=== PATIENT | male | born 1940 | race African-American/Black ===

== ENCOUNTER 2017-01-26 07:48 | Day surgery (SDC) | payer MEDICARE, BC ==
[~2017-01-26] VITALS: Ht 162.6 cm; Wt 66.0 kg
[2017-01-26] VITALS (16 sets, daily range): BP systolic 77–108; BP diastolic 35–62; PULSE 64–76; RESP 10–23; Ht 162.6 cm; Wt 66.0 kg
[~2017-01-26 07:48] MED LIST: ACET325T45 PO; ALLO100T PO; ASPI81TA3 PO; ATOR20TA38 PO; CITRACAL PO; CLOP75TA27 PO; DONE5TAB PO; FERR-55 PO; GUAI-637 PO; INSU100V23 SC; LEVO250T35 PO; LISI10TA2 PO; MULT-860 PO; MULT1TAB6 PO; OMEG100011 PO; PANT40TA4 PO; VITA100T7 PO; ZOLP5TAB7 PO
[2017-01-26] MEDS ORDERED: LIDOCAINE 1% (MPF) 30 ML INJ ONE (08:34)
[2017-01-26] MEDS ORDERED: GELATIN SIZE 100 SPONGE ONE ×2 (08:34→14:37)
[2017-01-26] MEDS ORDERED: HEPARIN 1000 UNITS/ML 10 ML INJ ONE (08:35)
[2017-01-26] MEDS ORDERED: THROMBIN 5000 UNIT VIAL ONE ×2 (08:35→14:37)
--- NOTE | 2017-01-26 08:37 | HPN ---
Date/Time of Note Date/Time of Note DATE: 01/26/17 TIME: 08:37 Interval H&P Admission Note Pt. seen H&P reviewed: No system changes ILA CHERRY MD Jan 26, 2017 08:37
[2017-01-26] MEDS ORDERED: AMIO200T2 PO (09:14)
[2017-01-26] MEDS ORDERED: DONE5TAB46 PO ×2 (09:15→09:16)
[2017-01-26] MEDS ORDERED: CARV12.579 PO (09:18)
[2017-01-26] MEDS ORDERED: DOCU-144 PO (09:19)
[2017-01-26] MEDS ORDERED: FISH1CAP PO (09:22)
[2017-01-26] MEDS ORDERED: DEXL60CA2 PO (09:22)
[2017-01-26] MEDS ORDERED: GLYC488L PO (09:23)
[2017-01-26] MEDS ORDERED: VIT1TAB.6 PO (09:24)
--- NOTE | 2017-01-26 09:24 | RADRPT ---
PROCEDURE: Chest radiograph. CLINICAL INDICATION: Preoperative evaluation prior to AV graft creation. TECHNIQUE: Single portable frontal view. COMPARISON: Radiograph from 07/12/2014 and 07/10/2014. FINDINGS: Double-lumen right internal jugular central venous catheter terminates in the proximal superior vena cava. Mild pulmonary vascular congestion, right more than left. Small right pleural effusion. Cardiomegaly. No suspicious bone lesion. IMPRESSION: Cardiomegaly with small right pleural effusion and mild vascular congestion. RPTAT: PP Rogers Reyes Physician Date Time Electronically viewed and signed by Rogers Reyes Physician on 01/26/2017 09:24 LG/
[2017-01-26] MEDS ORDERED: ONDA4TAB95 PO (09:25)
[2017-01-26] MEDS ORDERED: CLOP75TA27 PO (09:25)
[2017-01-26] MEDS ORDERED: RYE1TABL PO (09:27)
[2017-01-26] MEDS ORDERED: SEVE800T7 PO (09:27)
[2017-01-26] MEDS ORDERED: LINA5TAB PO (09:29)
[2017-01-26] MEDS ORDERED: LIDOCAINE 2% (SDV) 5 ML INJ ONE (10:06)
[2017-01-26] MEDS ORDERED: PROPOFOL 100 ML ONE (10:06)
[2017-01-26] MEDS ORDERED: MIDAZOLAM 1 MG/ML 2 ML INJ ONE (10:07)
[2017-01-26] MEDS ORDERED: CEFAZOLIN 1 GM INJ ONE (10:30)
[2017-01-26] MEDS ORDERED: FENTAnyl 50 MCG/ML VIAL ONE (10:37)
[2017-01-26] MEDS ORDERED: GELATIN SIZE 100 SPONGE TOP ONE (10:50)
[2017-01-26] MEDS ORDERED: THROMBIN 5000 UNIT VIAL TOP ONE (10:50)
[2017-01-26] MEDS ORDERED: ONDANSETRON 4 MG INJ IV PRN (11:30)
[2017-01-26] MEDS ORDERED: OXYCODONE/ACETAMINOPHEN (5/325) TAB PO PRN (11:30)
[2017-01-26] MEDS ORDERED: HYDROmorphONE (0.2 MG/ML) 10ML SYG IV PRN (11:30)
[2017-01-26] MEDS ORDERED: FENTAnyl 50 MCG/ML VIAL IV PRN (11:30)
[2017-01-26] MEDS ORDERED: PHENYLephrine (100 MCG/ML) 5ML SYG ONE (11:35)
--- NOTE | 2017-01-26 11:47 | OPR ---
Date/Time of Note Date/Time of Note DATE: 01/26/17 TIME: 11:46 Operative Report Preoperative Diagnosis ESRD Postoperative Diagnosis same Operation/Procedure Performed Right arm AV graft Surgeon: ILA CHERRY MD Anesthesia: MAC Estimated Blood Loss: none Grafts/Implants 6mm artegraft Complications: None ILA CHERRY MD Jan 26, 2017 11:47
[2017-01-26] MEDS ORDERED: HEPARIN 1000 UNITS/ML 10 ML INJ CATHETER SCH (12:00)
--- NOTE | 2017-01-26 14:47 | OPR ---
DATE OF OPERATION: 01/26/2017 DIAGNOSIS: End-stage renal disease. POSTOPERATIVE DIAGNOSIS: End-stage renal disease. OPERATION PERFORMED: Right upper arm AV graft creation. SURGEON: Dr. Lakhwinder Albrecht. ANESTHESIA: MAC anesthesia. ESTIMATED BLOOD LOSS: Minimal. COMPLICATIONS: There were no intra-procedural complications. INDICATIONS,: A 76-year-old gentleman with multiple medical problems and he has been on dialysis for several years. He has a failed left upper arm access. He had a right subclavian AICD that was removed over the past 6 months because of infection. He has a Life Vest. He now has a PermCath in the right internal jugular vein. He needs an arm access before his AICD can be replaced. He does have some stenosis in the right subclavian vein at the site of the PermCath so I told him that I was going to place a right upper arm AV graft. Once it is functional we will then remove the PermCath over a wire and then I will angioplasty the stenosis in the subclavian through that same access. I also told him that he may get swollen. He may get arm swelling before we treat. He understands. OPERATIVE PROCEDURE: Patient was brought to the operating room, placed on table in supine position. Right arm was prepped and draped in the usual sterile fashion. I made 2 incisions in the right medial arm, 1 just above the other one in the upper arm over the brachial artery and axillary artery pulses. I divided the subcutaneous tissue using electrocautery. I had given 10 cc of xylocaine over these areas of incision to anesthetize the area. Once I divided the subcutaneous tissues I dissected out the brachial artery at the elbow. I soft palpate the artery, it is a little bit small but it had no disease. The axillary vein in the upper arm was a good caliber vein, it was patent. I looped it proximally and distally. I then tunneled a 6 mm collagen Artegraft between the 2 incisions in a curvilinear fashion out over the biceps using a Yazmin tunneler. I then clamped the axillary vein proximally and distally, made a 1.5 cm venotomy and then I spatulated the end of the graft to fit the venotomy to side vein using 6-0 Prolene suture in a running standard vascular surgical fashion. I removed the clamps, there was good back flow and flushed easily. I reclamped the graft and then clamped the brachial artery proximally and distally, made an 8 mm long anterior arteriotomy. I then anastomosed the proximal end of graft to the side of brachial artery using 6-0 Prolene suture in a running standard vascular surgical fashion. I removed the clamps, there was soft thrill. There was good hemostasis. We closed the incisions in 2 layers using an inner layer of 3-0 Vicryl and an outer layer 4-0 Monocryl suture. Sterile dressings were applied. The patient was transferred to recovery in stable condition. He tolerated the procedure well without complications. Dictated By: Lakhwinder Albrecht MD /claudine/tray /Document#: [id number] CC: Apple Russo MD; Aníbal Osborne MD; Dr. Robert Bernstein;*EndCC*
--- NOTE | 2017-01-26 15:05 | RADRPT ---
Vent Rate: 78 bpm RR Interval: 0 msec [place] Interval: 180 msec QRS Duration: 114 msec QT Interval: 424 msec QTC Interval: 483 msec P-R-T [place]: 60 - 7 - 152 degrees Normal sinus rhythm ST amp; T wave abnormality, consider lateral ischemia Prolonged QT Abnormal ECG Electronically Signed By: Lakhwinder Medeiros [id number]
[2017-01-26] MEDS ORDERED: CARV3.1260 PO (20:45)
[2017-01-26] MEDS ORDERED: DONE10TA7 PO (20:48)
[2017-01-26] MEDS ORDERED: ATOR40TA68 PO (20:48)
[2017-01-26] MEDS ORDERED: MEMA10TA16 PO (20:49)
[2017-01-26] MEDS ORDERED: NATE60TA PO (20:50)
== END 2017-01-26 13:45 | disposition home or self-care (01) ==
LOC: SDS 07:48
PROVIDERS: ATTEND Surgery Vascular Surgery
DX: I12.0 Hypertensive chronic kidney disease with stage 5 chronic kidney disease or end stage renal disease (principal); N18.6 End stage renal disease; I25.10 Atherosclerotic heart disease of native coronary artery without angina pectoris; I50.9 Heart failure, unspecified; I25.2 Old myocardial infarction; Z95.810 Presence of automatic (implantable) cardiac defibrillator
CPT/HCPCS: 36821; 71010; 82962; 84132; 93005; C1725; C1768; J0690; J1644; J2250; J2370; J3010

== ENCOUNTER 2017-01-26 19:20 | Emergency (ER) | payer MEDICARE, BC ==
[~2017-01-26] VITALS: Ht 162.6 cm; Wt 67.0 kg
[~2017-01-26 19:20] MED LIST changes: +AMIO200T2 PO; +CARV12.579 PO; +DEXL60CA2 PO; +DOCU-144 PO; +DONE5TAB46 PO; +FISH1CAP PO; +GLYC488L PO; +LINA5TAB PO; +ONDA4TAB95 PO; +RYE1TABL PO; +SEVE800T7 PO; +VIT1TAB.6 PO
[2017-01-26 19:32] VITALS: Ht 162.6 cm; Wt 67.0 kg
[2017-01-26 19:40] VITALS: TEMP 97.8
[2017-01-26] MEDS ORDERED: SOD CHLORIDE 0.9% 500 ML IV STA (19:46)
[2017-01-26 20:17] LABS: BASOPHILS % 0.3 % (0.0-2.0); EOSINOPHILS # 0.4 10^3/ul (0.0-0.5); EOSINOPHILS % 5.1 % (0.0-7.0); HEMATOCRIT 34.4 % (42.0-52.0); HEMOGLOBIN 10.8 g/dl (14.0-18.0); LYMPHOCYTES # 2.2 10^3/ul (0.8-2.9); LYMPHOCYTES % 30.7 % (15.0-51.0); MEAN CORPUSCULAR HEMOGLOBIN 28.4 pg (29.0-33.0); MEAN CORPUSCULAR HGB CONC 31.4 g/dl (32.0-37.0); MEAN CORPUSCULAR VOLUME 90.5 fl (82.0-101.0); MEAN PLATELET VOLUME 12.6 fl (7.4-10.4); MONOCYTE # 0.8 10^3/ul (0.3-0.9); MONOCYTES % 10.5 % (0.0-11.0); NEUTROPHIL # 3.8 10^3/ul (1.6-7.5); NEUTROPHILS % 53.1 % (39.0-77.0); PLATELET COUNT 107 10^3/UL (140-415); RED CELL DISTRIBUTION WIDTH 15.6 % (11.5-14.5); WHITE BLOOD COUNT 7.2 10^3/ul (4.8-10.8)
[2017-01-26] MEDS ORDERED: CARV3.1260 PO (20:45)
[2017-01-26] MEDS ORDERED: DONE10TA7 PO (20:48)
[2017-01-26] MEDS ORDERED: ATOR40TA68 PO (20:48)
--- NOTE | 2017-01-26 20:48 | RADRPT ---
PROCEDURE: XR Chest. CLINICAL INDICATION: Chest pain. TECHNIQUE: PA and Lateral views of the chest were obtained. COMPARISON: None. FINDINGS: New right central venous double-lumen dialysis catheter with tip in the superior vena cava. Cardiomegaly. Small right pleural effusion is decreased over the interval. Mild atelectasis versus airspace disease at the right lung base. There is improved inflation at the left lung base. The b ilateral lungs otherwise substantially clear. No signs of pneumothorax are seen. The osseous struct ures and soft tissues are unremarkable. IMPRESSION: 1. New right central venous dialysis catheter in place with tip in superior vena cava. 2. Decreased right pleural effusion with persistent right lung base atelectasis versus airspace dise ase. RPTAT: [facility] Physician Cole Date Time Electronically viewed and signed by Physician Cole on 01/26/2017 20:47 RS/
[2017-01-26] MEDS ORDERED: MEMA10TA16 PO (20:49)
[2017-01-26] MEDS ORDERED: NATE60TA PO (20:50)
--- NOTE | 2017-01-26 21:03 | ERD ---
ER Documentation Chief Complaint Date/Time DATE: 01/26/17 TIME: 21:02 Chief Complaint sp left arm av fistula placement today, av fistula bleeding & HYPOTENSION HPI This is a 76-year-old male presents to the emergency room for evaluation of hypotension. This patient did have a left arm AV graft placed today by Dr. Albrecht. The patient did go to dialysis and after dialysis this patient was hypotensive. The patient was brought to the emergency room for further evaluation. This patient's states that the patient does have a LifeVest to help his heart. There is been no bleeding from the AV graft. The patient is receiving dialysis through her permacath through the anterior chest wall ROS All systems reviewed and are negative except as per history of present illness. Medications Home Meds Active Scripts Aspirin (Aspirin) 81 Mg Chew, 81 MG PO DAILY for 30 Days Prov:DEON GÓMEZ [employer] MEMBER 06/08/14 Reported Medications Nateglinide* (Nateglinide*) 60 Mg Tablet, 60 MG PO AC MEALS, TAB 01/26/17 Memantine* (Namenda*) 10 Mg Tablet, 10 MG PO DAILY, #30 TAB 01/26/17 Atorvastatin* (Atorvastatin*) 40 Mg Tablet, 40 MG PO QHS, #30 TAB 01/26/17 Donepezil* (Aricept*) 10 Mg Tablet, 10 MG PO DAILY, TAB 01/26/17 Carvedilol* (Carvedilol*) 3.125 Mg Tablet, 3.125 MG PO BID, #60 TAB 01/26/17 Linagliptin (TRADJENTA) 5 Mg Tablet, 5 MG PO DAILY, TAB 01/26/17 Sevelamer Carbonate* (Renvela*) 800 Mg Tablet, 0.8 GM PO WITH MEALS, TAB 01/26/17 [place] Extract/Quercetin (Prostate Pq Tablet) 1 Each Tablet, 1 EACH PO DAILY , TAB 01/26/17 Clopidogrel Bisulfate (Clopidogrel) 75 Mg Tablet, 75 MG PO DAILY, #30 TAB 01/26/17 Ondansetron Hcl* (Ondansetron Hcl*) 4 Mg Tablet, 4 MG PO Q6H Y for NAUSEA AND/ OR VOMITING, TAB 01/26/17 Vit B Complex & C No.19/FA/D3 (Nephronex-Sl Tablet) 1 Each Tab.rapdis, 1 EACH PO DAILY 01/26/17 Glycerin/Maltodextrin (Liquafiber Liquid) 488 Ml Liquid, 5 ML PO DAILY 01/26/17 Fish Oil/Dha/Epa (FISH OIL 1,200 MG FISH OIL) 1 Each Capsule, 1 EACH PO DAILY, CAP 01/26/17 Dexlansoprazole (Dexilant) 60 Mg Cap.mp, 60 MG PO DAILY, #30 CAP 01/26/17 Docusate Sodium* (Colace*) 100 Mg Capsule, 100 MG PO NEEDED, #30 CAP 01/26/17 Amiodarone Hcl* (Amiodarone Hcl*) 200 Mg Tablet, 200 MG PO DAILY, #30 TAB 01/26/17 Ferrous Sulfate* (Ferrous Sulfate*) 325 Mg Tablet, 325 MG PO DAILY, TAB 06/01/14 Discontinued Reported Medications Carvedilol* (Carvedilol*) 12.5 Mg Tablet, 12.5 MG PO BID, #60 TAB 01/26/17 Donepezil* (Aricept*) 5 Mg Tablet, 5 MG PO DAILY, TAB 01/26/17 Donepezil* (Aricept*) 5 Mg Tablet, 5 MG PO DAILY, TAB 01/26/17 Lisinopril* (Lisinopril*) 10 Mg Tablet, 10 MG PO DAILY, TAB 07/10/14 Levofloxacin* (Levaquin*) 250 Mg Tablet, 250 MG PO DAILY, TAB 07/10/14 Pantoprazole* (Pantoprazole*) 40 Mg Tablet.dr, 40 MG PO DAILY, TAB 07/10/14 [place]-3 Fatty Acids/Fish Oil* (Fish Oil *) 1,000 Mg Capsule, 1000 MG PO DAILY, CAP 07/10/14 Insulin Regular, Human* (Novolin R*) 100 U/Ml Vial, 1 UNIT SC AC MEALS, VIAL 07/10/14 Zolpidem Tartrate* (Zolpidem Tartrate*) 5 Mg Tablet, 5 MG PO HS Y, TAB 07/10/14 Acetaminophen* (Acetaminophen*) 325 Mg Tablet, 325 MG PO Q4H Y for PAIN AND OR ELEVATED TEMP, TAB 07/10/14 Vitamin E Acid Succinate (Vitamin E) 100 Unit Tablet, 400 UNIT PO DAILY, TAB 06/01/14 Calcium Citrate* (Citracal*) 950 Mg Tab, 950 MG PO DAILY, TAB 06/01/14 Mu-Vits-Min Th/Lycopene/Lutein (CENTRUM SILVER TABLET) 1 Each Tablet, 1 EACH PO DAILY 06/01/14 Folic Acid/Mv,Fe,Other Min (Centrum Complete Multivit Tab) 1 Each Tablet, 1 EACH PO 06/01/14 Donepezil* (Donepezil*) 5 Mg Odt Tablet, 5 MG PO DAILY, TAB 06/01/14 Allopurinol* (Allopurinol*) 100 Mg Tablet, 100 MG PO DAILY, TAB 06/01/14 Discontinued Scripts Guaifenesin* (Robitussin*) 100 Mg/5 Ml Syrup, 200 MG PO Q4H Y for COUGH for 30 Days, ML Prov:TEDDY SMITH S. 07/13/14 Atorvastatin Calcium* (Atorvastatin Calcium*) 20 Mg Tab, 40 MG PO QHS for 30 Days Prov:[employer] G[employer] MEMBER 06/08/14 Clopidogrel Bisulfate (Clopidogrel) 75 Mg Tab, 75 MG PO DAILY for 30 Days Prov:[employer]ON GÓ[employer]Z [employer] MEMBER 06/08/14 Allergies Allergies: Coded Allergies: No Known Allergy (Unverified , 01/26/17) PMhx/Soc History of Surgery: Yes (AICD,LT ARM VEIN TRANSPOSITION,RT CHEST PERMA-CATH, RT AV FISTULA 01/26/17) Anesthesia Reaction: No Hx Neurological Disorder: No Hx Respiratory Disorders: No Hx Cardiac Disorders: Yes (CAD S/P NH,CHF, AICD PLACEMENT THEN WAS REMOVED) Hx Psychiatric Problems: No Hx Miscellaneous Medical Probl: No Hx Alcohol Use: No Hx Substance Use: No Hx Tobacco Use: No Smoking Status: Former smoker Physical Exam Vitals Vital Signs Date Time Temp Pulse Resp B/P Pulse Ox O2 Delivery O2 Flow Rate FiO2 01/26/17 19:40 97.8 66 20 121/72 100 Room Air 01/26/17 19:32 97.8 56 20 74/40 99 Physical Exam INITIAL VITAL SIGNS: Reviewed by me GENERAL: The patient is well developed and appropriate for usual state of health in no apparent distress, wearing LifeVest HEENT: Pupils equal, round, and reactive to light. EOMI. There is no scleral icterus. NECK: C-spine is soft and supple, there is no meningismus. There is no cervical lymphadenopathy. LUNGS: Clear to auscultation bilaterally. There are no rales, wheezes or rhonchi. HEART: Regular rate and rhythm, no murmurs, clicks, rubs or gallops. ABDOMEN: Soft, non-tender, non-distended. There are bowel sounds in all four quadrants. No rebound or guarding. EXTREMITIES: Right upper extremity AV graft, no active bleeding, mild soft tissue swelling there is no peripheral cyanosis or edema. No focal swelling or erythema. NEUROLOGICAL: The patient moves all four extremities with 5/5 strength. Cranial nerves II - XII are intact. Normal gait. Alert and oriented SKIN: There is no apparent rash or petechiae. HEME/LYMPHATIC: There is no evidence of excessive bruising or lymphedema. PSYCHIATRIC: The patient does not appear anxious or depressed. Result Diagram: 01/26/171954 Results 24 hrs Laboratory Tests Test 01/26/17 19:55 White Blood Count 7.210^3/ul Red Blood Count 3.8010^6/ul Hemoglobin 10.8g/dl Hematocrit 34.4% Mean Corpuscular Volume 90.5fl Mean Corpuscular Hemoglobin 28.4pg Mean Corpuscular Hemoglobin Concent 31.4g/dl Red Cell Distribution Width 15.6% Platelet Count 57802^3/UL Mean Platelet Volume 12.6fl Neutrophils % 53.1% Lymphocytes % 30.7% Monocytes % 10.5% Eosinophils % 5.1% Basophils % 0.3% Nucleated Red Blood Cells % 0.0/100WBC Neutrophils # 3.810^3/ul Lymphocytes # 2.210^3/ul Monocytes # 0.810^3/ul Eosinophils # 0.410^3/ul Basophils # 0.010^3/ul Nucleated Red Blood Cells # 0.010^3/ul Current Medications Medications (Trade) Dose Ordered Sig/Jose Route PRN Reason Start Time Stop Time Status Last Admin Dose Admin Sodium Chloride (NS) 500 ml @ 500 mls/hr Q1H STAT IV 01/26/17 19:46 01/26/17 20:45 DC 01/26/17 19:52 Procedures/MDM EKG: Rate/Rhythm: [Normal Sinus Rhythm with PVCs] QRS, ST, T-waves: [No changes consistent w/ acute ischemia] Impression: [No evidence of ischemia or arrhythmia] Chest X-ray 1V Interpreted by me: Soft Tissue: 1. New right central venous dialysis catheter in place with tip in superior vena cava. 2. Decreased right pleural effusion with persistent right lung base atelectasis versus airspace disease. Bones: No acute abnormalities Mediastinum/Cardiac Silhouette/Lungs: [No acute abnormalities] This 76-year-old male presents to the ER for evaluation of hypotension. When I evaluated this patient he had a systolic blood pressure of 79, however he was not complaining of any chest pain or shortness of breath. This patient did undergo an AV graft in the right upper extremity done today by Dr. Albrecht. The patient was given 500 cc of IV normal saline. When I reevaluated this patient is a blood pressure of 140/99. This patient's is concerned because the patient had a pain in his left lower extremity. I did obtain a arterial ultrasound of the left lower extremity which does show diminished flow however the patient does have collateral flow through the foot. The patient is ambulating in the emergency room at this time without difficulty. His states that he feels comfortable taking the patient home at this time. I have contacted the on-call physician, Dr. Blake and I have reviewed the patient's lab work with him and that he is in agreement that the patient can be discharged at this time. Departure Diagnosis: Primary Impression: Hypotension Additional Impression: Peripheral vascular disease Condition: Stable ALISIA ALEJANDRO DO Jan 26, 2017 21:03
[2017-01-26 21:30] VITALS: BP 149/57; PULSE 92; RESP 19
--- NOTE | 2017-01-26 23:07 | RADRPT ---
PROCEDURE: US Lower extremity arterial. CLINICAL INDICATION: Left lower extremity pain. Peripheral arterial disease. TECHNIQUE: Multiple sonographic images of the left lower extremity arteries was obtained utilizing grayscale, color-flow, and doppler imaging. The images were reviewed on a PACS workstation. COMPARISON: None. FINDINGS: LEFT LEG: Common femoral artery: 134 cm/s; triphasic waveforms Proximal superficial femoral artery: 118 cm/s; triphasic waveforms Mid superficial femoral artery: 95 cm/s; triphasic waveforms Distal superficial femoral artery: 78 cm/s; triphasic waveforms Popliteal artery: 19-27 cm/s; biphasic waveforms Anterior tibial artery: 15 cm/s; monophasic waveforms Posterior tibial artery: 18 cm/s; monophasic waveforms Dorsalis pedis artery: 17 cm/s; monophasic waveforms There is moderate to severe atherosclerotic disease within the left lower extremity below the knee. IMPRESSION: 1. Abnormal dampened waveforms, most pronounced at and below the knee, likely related to intrinsic disease given the presence of moderate to severe atherosclerotic disease. 2. No evidence of hemodynamically significant stenosis or thrombosis. RPTAT: HLBP [place] Value Interpretation Recommendation >1.4 Calcification/Vessel Hardening Refer to a Vascular Specialist 1.0-1.4 Normal None 0.9-1.0 Acceptable None 0.8-0.9 Some Arterial Disease Treat Risk Factors 0.5-0.8 Moderate Arterial Disease Refer to a Vascular Specialist Stenosis category Peak systolic velocity (cm/s) Velocity ratio Distal artery spectral waveform <20% <150 <1.5 Triphasic, normal PSV 20% to 49% 150-200 1.5-2.0 Triphasic, normal PSV 50% to 75% 200-300 2.0-4.0 Monophasic, reduced PSV >75% >300, EDV >40 >4.0 Damped monophasic, reduced PSV Occlusion No flow Damped monophasic, reduced PSV Interpretation of arterial duplex testing of lower-extremity arteries and interventions. Seminars in Vascular Surgery. 2013-Feb;26(2-3):95-104. .Adrian Delvalle MD, Date Time Electronically viewed and signed by .Adrian Delvalle MD, on 01/26/2017 23:07 .P/
== END 2017-01-26 22:22 | disposition home or self-care (01) ==
LOC: E/R 19:20
DX: I95.9 Hypotension, unspecified (principal); I73.9 Peripheral vascular disease, unspecified; I25.10 Atherosclerotic heart disease of native coronary artery without angina pectoris; I50.9 Heart failure, unspecified; E11.9 Type 2 diabetes mellitus without complications; Z79.4 Long term (current) use of insulin; Z79.82 Long term (current) use of aspirin; Z79.84 Long term (current) use of oral hypoglycemic drugs; Z87.891 Personal history of nicotine dependence; Z99.2 Dependence on renal dialysis
CPT/HCPCS: 36415; 71010; 85025; 93005; 93926; 99285; J7040

== ENCOUNTER 2018-12-12 10:54 | Day surgery (SDC) | payer MEDICARE, BC ==
[~2018-12-12] VITALS: Ht 167.6 cm; Wt 64.5 kg
[~2018-12-12 10:54] MED LIST changes: -ACET325T45 PO; -ALLO100T PO; -AMIO200T2 PO; +AMIO200T4 PO; +ASPI-831 PO; -ASPI81TA3 PO; -ATOR20TA38 PO; +ATOR40TA68 PO; -CARV12.579 PO; +CARV3.1260 PO; -CITRACAL PO; +DONE10TA7 PO; -DONE5TAB PO; -DONE5TAB46 PO; -GUAI-637 PO; -INSU100V23 SC; -LEVO250T35 PO; -LISI10TA2 PO; +MEMA10TA PO; -MULT-860 PO; -MULT1TAB6 PO; +NATE60TA PO; -OMEG100011 PO; -PANT40TA4 PO; -VITA100T7 PO; -ZOLP5TAB7 PO
[2018-12-12] MEDS ORDERED: ATOR40TA68 PO (11:41)
[2018-12-12] MEDS ORDERED: CALC600T24 PO (11:41)
[2018-12-12] MEDS ORDERED: ASPI81TA52 PO (11:41)
[2018-12-12] MEDS ORDERED: CARV6.2579 PO (11:42)
[2018-12-12] MEDS ORDERED: CLOP75TA27 PO (11:43)
[2018-12-12] MEDS ORDERED: CHOL500010 PO (11:43)
[2018-12-12] MEDS ORDERED: DONE10TA7 PO (11:44)
[2018-12-12] MEDS ORDERED: DEXL60CA2 PO (11:44)
[2018-12-12] MEDS ORDERED: FER325 PO (11:45)
[2018-12-12] MEDS ORDERED: NATE60TA PO (11:45)
[2018-12-12] MEDS ORDERED: MULTI PO (11:45)
[2018-12-12] MEDS ORDERED: VITA1CAP7 PO (11:47)
[2018-12-12] MEDS ORDERED: MIDO5TAB PO (11:48)
[2018-12-12] MEDS ORDERED: MEMA10TA PO (11:48)
[2018-12-12] MEDS ORDERED: MULT-542 PO (11:48)
[2018-12-12] MEDS ORDERED: LINA5TAB PO (11:49)
[2018-12-12] MEDS ORDERED: OMEG1CAP17 PO (11:50)
[2018-12-12 12:08] VITALS: Ht 167.6 cm; Wt 64.5 kg
[2018-12-12 12:21] VITALS: BP 123/59; PULSE 58; RESP 16
--- NOTE | 2018-12-12 12:24 | HPN ---
Date/Time of Note Date/Time of Note DATE: 12/12/18 TIME: 12:24 Interval H&P Admission Note Pt. seen H&P reviewed: No system changes ILA CHERRY MD Dec 12, 2018 12:24
[2018-12-12] MEDS ORDERED: SOD CHLORIDE 0.9% 500 ML IV SCH (12:30)
--- NOTE | 2018-12-13 07:32 | RADRPT ---
Vent Rate: 52 bpm RR Interval: 1144 msec [place] Interval: 184 msec QRS Duration: 92 msec QT Interval: 444 msec QTC Interval: 415 msec P-R-T [place]: 50 - -23 - 151 degrees Sinus rhythm...normal P axis, V-rate 50- 99 Inferior infarct, old...Q >35mS, II III aVF Probable anterolateral infarct, age indeterm...Q >35mS, T neg, V2-V6,I,aVL Electronically Signed By: Fransisco Rodriguez
== END 2018-12-12 13:57 | disposition home or self-care (01) ==
LOC: SDS 10:54
PROVIDERS: ATTEND Surgery Vascular Surgery
DX: N18.6 End stage renal disease (principal); I12.0 Hypertensive chronic kidney disease with stage 5 chronic kidney disease or end stage renal disease; Z53.09 Procedure and treatment not carried out because of other contraindication; E87.5 Hyperkalemia
CPT/HCPCS: 71045; 80053; 82962; 85025; 85610; 85730; 93005

== ENCOUNTER 2019-01-02 05:44 | Day surgery (SDC) | payer MEDICARE, BC ==
--- NOTE | 2019-01-01 20:52 | PREAC ---
Date/Time of Note Date/Time of Note DATE: 01/01/19 TIME: 20:50 Anesthesia Eval and Record Evaluation Time Pre-Procedure Interview DATE: 01/01/19 TIME: 20:50 Age 78 Sex male NPO: 8 hrs Preoperative diagnosis ESRD Planned procedure LEFT AV GRAFT CREATION Past Medical History Past Medical History: Includes Cardio: HTN, Dyslipidemia, [place] (S/P PCI), CAD, PTCA/Stent, PPM/AICD (AICD s/p removal due to infection, now wears life vest/ external defibrillator. ), CHF (EF 30%) Endo: Diabetes Neuro: Other (DEMENTIA) Renal: ESRD on dialysis Heme: Anemia Psych: Depression Surgery & Anesthesia Issues No known issue Meds Anticoagulation: Yes (last dose Plavix and ASA 2 days ago) Beta [place] within 24 hr: Yes Reported Medications [place]-3 Fatty Acids/Fish Oil (Fish Oil 1,000 mg Softgel) 1 Each Capsule, 1 EACH PO BID, CAP 12/12/18 Linagliptin (TRADJENTA) 5 Mg Tablet, 5 MG PO QAM, TAB 12/12/18 Memantine* (Namenda*) 10 Mg Tablet, 10 MG PO BID, #60 TAB 12/12/18 Midodrine* (Midodrine*) 5 Mg Tablet, 5 MG PO BID, TAB 12/12/18 Vitamin B Complex (Super B-50 Complex) 1 Each Capsule, 1 EACH PO DAILY, CAP 12/12/18 Multivitamins* (Theragran*) 1 Tab Tab, 1 TAB PO DAILY, TAB 12/12/18 Nateglinide* (Nateglinide*) 60 Mg Tablet, 60 MG PO BID WITH MEALS, TAB 12/12/18 Ferrous Sulfate* (Ferrous Sulfate*) 325 Mg [place], 325 MG PO DAILY, TAB 12/12/18 Donepezil* (Donepezil*) 10 Mg Tablet, 10 MG PO QHS, #30 TAB 12/12/18 Dexlansoprazole (Dexilant) 60 Mg , 60 MG PO DAILY, #30 CAP 12/12/18 Clopidogrel Bisulfate (Clopidogrel) 75 Mg Tablet, 75 MG PO DAILY, #30 TAB 12/12/18 Cholecalciferol (Vitamin D3) 5,000 Unit Tablet, 5000 UNIT PO DAILY, TAB 12/12/18 Carvedilol* (Carvedilol*) 6.25 Mg Tablet, 6.25 MG PO BID, #60 TAB 12/12/18 Calcium Carbonate* (Calcium Carbonate*) 600 MG Ca Tab, 600 MG PO BID, TAB 12/12/18 Atorvastatin* (Atorvastatin*) 40 Mg Tablet, 40 MG PO QHS, #30 TAB 12/12/18 Aspirin (Low Dose Aspirin) 81 Mg Tablet.dr, 81 MG PO DAILY, #30 TAB 12/12/18 Discontinued Reported Medications Multivitamin* (Daily Value*) 1 Each Tablet, 1 TAB PO DAILY, TAB 12/12/18 Meds reviewed: Yes Allergies Coded Allergies: No Known Allergy (Unverified , 01/02/19) Allergies Reviewed: Yes Labs/Studies Labs Reviewed: Reviewed by anesthesiologist test: N/A Studies: ECG, CXR Pre-procedure Exam Airway: Adequate mouth opening, Adequate thyromental dist Mallampati: Mallampati II Teeth: Normal Lung: Normal Heart: Normal ASA Physical Status ASA physical status: 4 Emergency: None Planned Anesthetic General/MAC: MAC, TIVA Planned Pain Management Parenteral pain med, Local by surgeon Pre-operative Attestations Prior to commencing anesthesia and surgery, the patient was re-evaluated, there was verification of: *The patient's identity *The results of appropriate recent lab work and preoperative vital signs *The above evaluation not changing prior to induction *Anesthetic plan, risk benefits, alternative and complications discussed with patient/family; questions answered; patient/family understands, accepts and wishes to proceed. DANNY GIRON Jan 01, 2019 20:52
[2019-01-02] VITALS (11 sets, daily range): BP systolic 103–127; BP diastolic 45–59; PULSE 57–70; RESP 14–19; Ht 162.6 cm; Wt 64.8 kg
[~2019-01-02] VITALS: Ht 162.6 cm; Wt 64.8 kg
[~2019-01-02 05:44] MED LIST changes: -AMIO200T4 PO; -ASPI-831 PO; +ASPI81TA52 PO; +CALC600T24 PO; -CARV3.1260 PO; +CARV6.2579 PO; +CHOL500010 PO; -DOCU-144 PO; +FER325 PO; -FERR-55 PO; -FISH1CAP PO; -GLYC488L PO; +MIDO5TAB PO; +MULT-542 PO; +MULTI PO; +OMEG1CAP17 PO; -ONDA4TAB95 PO; -RYE1TABL PO; -SEVE800T7 PO; -VIT1TAB.6 PO; +VITA1CAP7 PO
[2019-01-02] MEDS ORDERED: GELATIN SIZE 100 SPONGE ONE (07:03)
[2019-01-02] MEDS ORDERED: LIDOCAINE 1% (MPF) 30 ML INJ ONE (07:03)
[2019-01-02] MEDS ORDERED: HEPARIN 1000 UNITS/ML 10 ML INJ ONE (07:03)
[2019-01-02] MEDS ORDERED: THROMBIN 5000 UNIT VIAL ONE (07:03)
--- NOTE | 2019-01-02 07:07 | HPN ---
Date/Time of Note Date/Time of Note DATE: 01/02/19 TIME: 07:07 Interval H&P Admission Note Pt. seen H&P reviewed: No system changes ILA CHERRY MD Jan 02, 2019 07:07
[2019-01-02] MEDS ORDERED: HEPARIN 1000 UNITS/ML 10 ML INJ IRR ONE (07:30)
[2019-01-02] MEDS ORDERED: LIDOCAINE 1% (MPF) 30 ML INJ INJ ONE (07:30)
[2019-01-02] MEDS ORDERED: ROPIVACAINE 0.5 % 30 ML VIAL ONE (07:32)
[2019-01-02] MEDS ORDERED: MIDAZOLAM 1 MG/ML 2 ML INJ ONE (07:34)
[2019-01-02] MEDS ORDERED: PROPOFOL 100 ML ONE (09:11)
[2019-01-02] MEDS ORDERED: FENTAnyl 50 MCG/ML VIAL ONE (09:11)
[2019-01-02] MEDS ORDERED: CEFAZOLIN 1 GM INJ ONE (09:11)
--- NOTE | 2019-01-02 09:20 | SIPON ---
Date/Time of Note Date/Time of Note DATE: 01/02/19 TIME: 09:20 Operative Report Preoperative Diagnosis ESRD Postoperative Diagnosis same Operation/Procedure Performed L AVG revision / thrombectomy Surgeon see signature line assistant administrator none Anesthesia: other Estimated blood loss: minimal Transfusion Required none Specimen thrombus from brachial artery anastomosis Grafts/Implants none Complications none ILA CHERRY MD Jan 02, 2019 09:20
--- NOTE | 2019-01-02 09:27 | PAC ---
Date/Time of Note Date/Time of Note DATE: 01/02/19 TIME: 09:26 Post-Anesthesia Notes Post-Anesthesia Note Last documented vital signs Vital Signs Date Temp Pulse Resp B/P (MAP) Pulse Ox O2 O2 Flow FiO2 Time Delivery Rate 01/02/19 97.8 57 18 112/59 100 Room Air 0926 (76) Activity: WNL Respiratory function: WNL Cardiovascular function: WNL Mental status: Baseline Pain reasonably controlled: Yes Hydration appropriate: Yes Nausea/Vomiting absent: Yes AIDE RODRIGUEZ Jan 02, 2019 09:27
[2019-01-02] MEDS ORDERED: MEPERIDINE 25 MG INJ IV PRN (09:30)
[2019-01-02] MEDS ORDERED: hydrALAzine 20 MG INJ IV PRN (09:30)
[2019-01-02] MEDS ORDERED: LABETALOL HCL 20MG INJ IV PRN (09:30)
[2019-01-02] MEDS ORDERED: KETOROLAC 30 MG INJ IV PRN (09:30)
[2019-01-02] MEDS ORDERED: DIPHENHYDRAMINE 50 MG INJ IV PRN (09:30)
[2019-01-02] MEDS ORDERED: ONDANSETRON 4 MG INJ IV PRN (09:30)
[2019-01-02] MEDS ORDERED: OXYCODONE/ACETAMINOPHEN (5/325) TAB PO PRN ×2 (09:30)
[2019-01-02] MEDS ORDERED: EPHEDrine 25 MG/5 ML SYG IV PRN (09:30)
[2019-01-02] MEDS ORDERED: FENTAnyl 50 MCG/ML VIAL IV PRN ×3 (09:30)
[2019-01-02] MEDS ORDERED: ALBUTEROL 0.083% (NEB) 2.5 MG/3 ML AMP HHN PRN (09:30)
[2019-01-02] MEDS ORDERED: MIDAZOLAM 1 MG/ML 2 ML INJ IV PRN (09:30)
--- NOTE | 2019-01-02 11:31 | OPR ---
DATE OF OPERATION: 01/02/2019 PREOPERATIVE DIAGNOSIS: End-stage renal disease with nonfunctional bilateral upper extremity AV acce ss. POSTOPERATIVE DIAGNOSIS: End-stage renal disease with nonfunctional bilateral upper extremity AV acc ess. PROCEDURE PERFORMED: Left arm AV fistula revision with partial thrombectomy. SURGEON: Ila Albrecht MD. ANESTHESIA: Scalene block. ESTIMATED BLOOD LOSS: Minimal. COMPLICATIONS: No intraprocedural complications. INDICATIONS: This is a 78-year-old diabetic hypertensive gentleman with end-stage renal disease. He has congestive heart failure. He has end-stage cardiomyopathy. He currently has a right femoral Pe rm-A-Cath in place. He has had failed upper extremity accesses bilaterally. He had an AICD on the l eft. It has subsequently been removed because it became infected. I did a recent venogram and his l eft upper extremity central veins are patent, the right are occluded. Ivan him in today for creati on of a new access in the left arm. I used a piece of the previous basilic vein transposition and I placed an Artegraft that is sort of a hybrid fistula graft and I thrombectomized his previous fistula . DESCRIPTION OF PROCEDURE: The patient was brought to the operating room and placed on the table in t he supine position. Left arm was prepped and draped in the usual sterile fashion. After regional bl ock was placed, I used ultrasound to uncinate the arm. I had a very good axillary vein in the upper arm. The central veins were patent on recent venogram. I looked down by the elbow. The brachial ar hetal had 2 brachial arteries. There was a previous brachiobasilic transposition I could see that was partially opened just past the anastomosis, so I marked this area on the skin. I then began by barry weir an incision over the brachial artery at the previous brachiobasilic anastomosis. I carefully diss ected out the brachial artery and the basilic vein. I transected the basilic vein after about 3 or 4 cm above the anastomosis. This was occluded distally. I then did a thrombectomy of the stump of th e fistula using a 4-[place] Nikki and just pulling some clot out with the forceps and so I decided t o use this piece of vein as kind of a patch around the arterial anastomosis. There was good pulse in the artery. Then moved to the upper arm, made an incision over the axillary vein, dissected down th rough subcutaneous tissue using electrocautery. I carefully dissected out the axillary vein. I circ umferentially freed it up. There was a good caliber vein that was about 8 mm. I then tunneled a 6 m m Artegraft between the 2 incisions using an aortic crossclamp. I then clamped the axillary vein pro ximally and distally, made about 1.5 cm long venotomy and spatulated the upper end of the graft to fi t the vein using a Kelly. I then anastomosed the end of the graft to the side of vein using 5-0 Prole ne suture in a running standard vascular surgical fashion. I removed the clamps. There was good severo kflow from the graft and flushed easily and there was good hemostasis. I went to the arterial anasto mosis. I clamped the brachial artery proximally and distally. I then took that piece of vein that w as attached to the brachial artery and kind of opened it up and used it as a green over for the anasto mosis of the proximal end of the graft. I then anastomosed the lower end of graft to the side of the brachial artery at the previous anastomosis using 6-0 Prolene suture in a running standard vascular surgical fashion. I removed the clamps. There was good hemostasis. There was an excellent thrill. I then closed the skin incisions in 2 layers using an inner layer of 3-0 Vicryl and an outer layer o f surgical johan. Sterile dressing was applied. The patient was transferred to recovery room in s table condition. Tolerated procedure well without any complications. Dictated By: ILA PICKETT/RACHEL Conf#: [id number] DID#: [id number] CC: KIM OWENS MD;*EndCC*
--- NOTE | 2019-01-02 19:15 | RADRPT ---
Vent Rate: 55 bpm RR Interval: 1084 msec VA Interval: 180 msec QRS Duration: 105 msec QT Interval: 447 msec QTC Interval: 429 msec P-R-T [place]: 50 - 9 - 193 degrees Sinus rhythm...normal P axis, V-rate 50- 99 Probable anterior infarct, age indeterminate...Q >35mS, T neg, V2-V5 Electronically Signed By: Lakhwinder Medeiros
== END 2019-01-02 11:20 | disposition home or self-care (01) ==
LOC: SDS 05:44
PROVIDERS: ATTEND Surgery Vascular Surgery
DX: T82.590D Other mechanical complication of surgically created arteriovenous fistula, subsequent encounter (principal); Y84.1 Kidney dialysis as the cause of abnormal reaction of the patient, or of later complication, without mention of misadventure at the time of the procedure; I12.0 Hypertensive chronic kidney disease with stage 5 chronic kidney disease or end stage renal disease; N18.6 End stage renal disease; E11.9 Type 2 diabetes mellitus without complications; Z79.82 Long term (current) use of aspirin
CPT/HCPCS: 36833; 71045; 80053; 82962; 85025; 85610; 85730; 88304; 93005; C1768; J0690; J1644; J2250; J2795; J3010

== ENCOUNTER 2019-04-16 21:59 | Inpatient (IN) | payer MEDICARE, BC ==
[~2019-04-16] VITALS: Ht 175.3 cm; Wt 64.3 kg
[~2019-04-16 21:59] MED LIST changes: +ACET-2343 PO; +ACET325T45 PO; +ASCO500C7 PO; +BISA10SU55 RC; -CALC600T24 PO; +CARV6.25 PO; -CARV6.2579 PO; +CRAN3875 PO; +CRAN425C6 PO; -DEXL60CA2 PO; +DOCU250C58 PO; -FER325 PO; +FLUC200T52 PO; +KRIL1CAP3 PO; -LINA5TAB PO; -MIDO5TAB PO; +MIDO5TAB4 PO; -MULT-542 PO; -NATE60TA PO; +NEPH PO; +NOVO3I SC; -OMEG1CAP17 PO; +PANT40TA3 PO; -VITA1CAP7 PO; +WHEA1POW8 PO; +ZINC220T3 PO
[2019-04-16] MEDS ORDERED: SODIUM CHLORIDE 0.9% 1L BAG IV* STA (22:01)
[2019-04-17] MEDS ORDERED: SOD CHLORIDE 0.9% 0 ML IV ONE (02:35)
[2019-04-17] MEDS ORDERED: DEXTROSE 5%-0.45% NACL 1,000 ML IV SCH (03:58)
[2019-04-17] MEDS ORDERED: ONDANSETRON 4 MG INJ IV PRN ×2 (04:00)
[2019-04-17] MEDS ORDERED: ACETAMINOPHEN 325 MG TAB PO PRN ×2 (04:00)
[2019-04-17] MEDS ORDERED: ALBUTEROL/IPRATROPIUM (NEB) 3 ML AMP HHN PRN (04:00)
[2019-04-17] MEDS ORDERED: NACL 0.9% 3 ML SYG IV SCH (04:00)
[2019-04-17 04:34] VITALS: Ht 175.3 cm; Wt 64.3 kg
[2019-04-17] MEDS: PANTOPRAZOLE 40 MG INJ IV SCH (06:47)
[2019-04-17 07:22] VITALS: BP 124/77; PULSE 86; RESP 20
[2019-04-17 11:17] VITALS: BP 106/61; PULSE 88; RESP 20
[2019-04-17] MEDS: MEMANTINE 10 MG TAB PO SCH ×2 (12:07→20:37)
[2019-04-17] MEDS: DONEPEZIL 10 MG TAB PO SCH (12:07)
[2019-04-17] MEDS ORDERED: POTASSIUM CHLORIDE (SR) 10 MEQ TAB PO ONE (14:30)
[2019-04-17 15:34] VITALS: BP 117/59; PULSE 85; RESP 20
[2019-04-17] MEDS ORDERED: PEG/ELECTROLYTES 4L BTL PO ONE (17:00)
[2019-04-17 19:51] VITALS: BP 152/81; PULSE 100; RESP 20
[2019-04-17] MEDS: LACTULOSE 30ML CUP PO SCH ×2 (20:37→22:48)
[2019-04-17] MEDS: ATORVASTATIN 40 MG TAB PO SCH (20:37)
[2019-04-18] VITALS (25 sets, daily range): BP systolic 88–153; BP diastolic 45–96; PULSE 90–104; RESP 16–24
[2019-04-18] MEDS: LACTULOSE 30ML CUP PO SCH ×2 (00:22→02:05)
[2019-04-18] MEDS: PANTOPRAZOLE 40 MG INJ IV SCH (05:42)
[2019-04-18] MEDS: MEMANTINE 10 MG TAB PO SCH ×2 (09:00→20:48)
[2019-04-18] MEDS: DONEPEZIL 10 MG TAB PO SCH (09:00)
[2019-04-18] MEDS: ASPIRIN 81 MG TAB PO SCH (10:30)
[2019-04-18] MEDS: MIDODRINE 5 MG TAB PO SCH ×2 (10:42→20:48)
[2019-04-18] MEDS ORDERED: LIDOCAINE 2% (SDV) 5 ML INJ ONE (11:45)
[2019-04-18] MEDS ORDERED: PROPOFOL 200 MG INJ ONE (11:45)
[2019-04-18] MEDS ORDERED: PROPOFOL 40 ML ONE (11:45)
[2019-04-18] MEDS: HEPARIN 1000 UNITS/ML 10 ML INJ CATHETER SCH (17:41)
[2019-04-18] MEDS: ATORVASTATIN 40 MG TAB PO SCH (20:47)
[2019-04-19] VITALS (16 sets, daily range): BP systolic 102–130; BP diastolic 52–85; PULSE 72–98; RESP 16–20
[2019-04-19] MEDS: PANTOPRAZOLE 40 MG INJ IV SCH (05:57)
[2019-04-19] MEDS: DONEPEZIL 10 MG TAB PO SCH (08:51)
[2019-04-19] MEDS: MIDODRINE 5 MG TAB PO SCH ×2 (08:52→22:08)
[2019-04-19] MEDS: ASPIRIN 81 MG TAB PO SCH (08:52)
[2019-04-19] MEDS: MEMANTINE 10 MG TAB PO SCH ×2 (08:52→22:07)
[2019-04-19] MEDS: HEPARIN 1000 UNITS/ML 10 ML INJ CATHETER SCH (20:21)
[2019-04-19] MEDS: ATORVASTATIN 40 MG TAB PO SCH (22:07)
[2019-04-20] VITALS (7 sets, daily range): BP systolic 105–155; BP diastolic 51–71; PULSE 57–93; RESP 16–18
[2019-04-20] MEDS: PANTOPRAZOLE (EC) 40 MG TAB PO SCH (05:44)
[2019-04-20] MEDS: DONEPEZIL 10 MG TAB PO SCH (08:30)
[2019-04-20] MEDS: MIDODRINE 5 MG TAB PO SCH ×2 (08:30→20:21)
[2019-04-20] MEDS: ASPIRIN 81 MG TAB PO SCH (08:30)
[2019-04-20] MEDS: MEMANTINE 10 MG TAB PO SCH ×2 (08:30→20:21)
[2019-04-20] MEDS: ATORVASTATIN 40 MG TAB PO SCH (20:21)
[2019-04-21] VITALS (20 sets, daily range): BP systolic 87–118; BP diastolic 52–66; PULSE 52–87; RESP 17–18
[2019-04-21] MEDS: PANTOPRAZOLE (EC) 40 MG TAB PO SCH (05:22)
[2019-04-21] MEDS ORDERED: POTASSIUM CHLORIDE 20 MEQ POWDER FOR ORAL SOLN PO ONE (10:00)
[2019-04-21] MEDS: MEMANTINE 10 MG TAB PO SCH ×2 (10:18→20:30)
[2019-04-21] MEDS: DONEPEZIL 10 MG TAB PO SCH (10:18)
[2019-04-21] MEDS: ASPIRIN 81 MG TAB PO SCH (10:19)
[2019-04-21] MEDS: MIDODRINE 5 MG TAB PO SCH ×2 (10:19→20:30)
[2019-04-21] MEDS: ALBUMIN HUMAN 25% 100 ML IV PRN ×2 (16:51→17:54)
[2019-04-21] MEDS: HEPARIN 1000 UNITS/ML 10 ML INJ CATHETER SCH (19:38)
[2019-04-21] MEDS: ATORVASTATIN 40 MG TAB PO SCH (20:30)
[2019-04-22 03:57] VITALS: BP 116/61; PULSE 62; RESP 16
[2019-04-22] MEDS: PANTOPRAZOLE (EC) 40 MG TAB PO SCH (05:24)
[2019-04-22 07:45] VITALS: BP 106/62; PULSE 82; RESP 18
[2019-04-22] MEDS: ASPIRIN 81 MG TAB PO SCH (08:46)
[2019-04-22] MEDS: MEMANTINE 10 MG TAB PO SCH ×2 (08:46→19:51)
[2019-04-22] MEDS: DONEPEZIL 10 MG TAB PO SCH (08:46)
[2019-04-22] MEDS: MIDODRINE 5 MG TAB PO SCH ×2 (08:47→19:52)
[2019-04-22 12:24] VITALS: BP 102/70; PULSE 68; RESP 18
[2019-04-22 16:45] VITALS: BP 109/71; PULSE 65; RESP 18
[2019-04-22 19:33] VITALS: BP 94/51; PULSE 74; RESP 16
[2019-04-22] MEDS: ATORVASTATIN 40 MG TAB PO SCH (19:51)
== END 2019-04-22 20:50 | DRG 377 ==
LOC: E/R 21:59 → TEL 23:39 → OBSVTOIN 04-19 11:19
PROVIDERS: ADMIT Internal Medicine; ATTEND Internal Medicine
PROC: 0DB78ZX Excision of Stomach, Pylorus, Via Natural or Artificial Opening Endoscopic, Diagnostic (ICD-10-PCS; 2019-04-18)
PROC: 5A1D70Z Performance of Urinary Filtration, Intermittent, Less than 6 Hours Per Day (ICD-10-PCS; 2019-04-18)
PROC: 0W3P8ZZ Control Bleeding in Gastrointestinal Tract, Via Natural or Artificial Opening Endoscopic (ICD-10-PCS; principal; 2019-04-18 12:00)
PROC: 0DB58ZX Excision of Esophagus, Via Natural or Artificial Opening Endoscopic, Diagnostic (ICD-10-PCS; 2019-04-18 12:00)
PROC: 5A1D70Z Performance of Urinary Filtration, Intermittent, Less than 6 Hours Per Day (ICD-10-PCS; 2019-04-19)
PROC: 5A1D70Z Performance of Urinary Filtration, Intermittent, Less than 6 Hours Per Day (ICD-10-PCS; 2019-04-21)
DX: K92.1 Melena (principal); N18.6 End stage renal disease; K62.6 Ulcer of anus and rectum; I50.22 Chronic systolic (congestive) heart failure; I47.2 Ventricular tachycardia; B37.81 Candidal esophagitis; E11.22 Type 2 diabetes mellitus with diabetic chronic kidney disease; E11.65 Type 2 diabetes mellitus with hyperglycemia; I27.20 Pulmonary hypertension, unspecified; I25.5 Ischemic cardiomyopathy; F03.90 Unspecified dementia, unspecified severity, without behavioral disturbance, psychotic disturbance, mood disturbance, and anxiety; D64.9 Anemia, unspecified; I25.10 Atherosclerotic heart disease of native coronary artery without angina pectoris; E78.5 Hyperlipidemia, unspecified; K29.70 Gastritis, unspecified, without bleeding; K21.9 Gastro-esophageal reflux disease without esophagitis; Z99.2 Dependence on renal dialysis; Z79.4 Long term (current) use of insulin; Z79.82 Long term (current) use of aspirin; Z95.5 Presence of coronary angioplasty implant and graft
CPT/HCPCS: 36415; 71045; 74018; 80048; 80053; 80061; 83036; 83605; 83735; 84100; 84484; 85014; 85018; 85025; 85610; 85730; 86706; 86850; 86900; 86901; 86920; 87081; 87340; 88305; 88312; 88313; 90935; 93005; 93306; 97116; 97162; 97530; G0378; C9113; J1644; J7030; J7040; J7042; P9047